=== PATIENT | female | born 1975 | race Caucasian/White ===

== ENCOUNTER → 2020-03-11 | Outpatient (CLI) | payer OTHER | LOC: COL.RAD 03-09 14:15 | DX: K82.8 Other specified diseases of gallbladder (principal); R11.0 Nausea; F10.10 Alcohol abuse, uncomplicated; R12 Heartburn; R10.9 Unspecified abdominal pain ==

== ENCOUNTER 2020-03-17 02:15 | Emergency (ER) | payer OTHER ==
[~2020-03-17] VITALS: Ht 175.3 cm; Wt 81.8 kg
[2020-03-17 02:46] LABS: BASO # 0.1 (0.0-0.2); BASO % 0.5 % (0.0-2.0); EOS # 0.3 (0.0-0.7); EOS % 3.3 % (0-4.0); GRAN # 5.4 (1.4-6.5); GRAN % 54.5 % (42.2-75.2); HEMATOCRIT 41.5 % (37.0-47.0); HEMOGLOBIN 14.2 g/dl (12.5-16.0); LYMPH # 3.5 (1.2-3.4); LYMPH % 35.1 % (20.0-51.0); MEAN CELL VOLUME 88 fl (80.0-100.0); MEAN CORPUSCULAR HEMOGLOBIN 30 pg (27.0-31.0); MEAN CORPUSCULAR HGB CONC 34 g/dl (33.0-37.0); MEAN PLATELET VOLUME 10.7 fl (7.4-10.4); MONO # 0.6 (0.1-0.6); MONO % 6.3 % (1.7-9.3); PLATELET COUNT 258 K/mm3 (130-400); RED BLOOD COUNT 4.72 M/mm3 (4.10-5.30); REDCELL DISTRIBUTION WIDTH-CV 12.7 % (11.5-14.5)
[2020-03-17 02:58] LABS: ALBUMIN 4.5 gm/dL (3.5-5.0); BILIRUBIN,TOTAL 0.4 mg/dL (0.0-1.0); C-REACTIVE PROTEIN 1.2 mg/dL (0.0-0.9); CREATININE, serum 1.05 (0.52-1.25); POTASSIUM 3.8 mmol/L (3.4-5.0); TOTAL PROTEIN 7.5 gm/dL (6.4-8.2)
[2020-03-17 03:38] LABS: COLLECTION METHOD CLEAN CATCH
[2020-03-17 04:03] LABS: AMORPHOUS CRYSTAL Present /uL; MUCOUS Present /lpf; PH 9 (5-8); URINE APPEARANCE Cloudy; URINE BACTERIA Rare /hpf; URINE BILIRUBIN Negative (NEGATIVE); URINE BLOOD Negative (NEGATIVE); URINE COLOR Yellow; URINE GLUCOSE Negative (NEGATIVE); URINE KETONE Negative (NEGATIVE); URINE LEUKOCYTE ESTERASE Negative (NEGATIVE); URINE NITRATE Negative (NEGATIVE); URINE PROTEIN(semi-quant) Negative (NEGATIVE); URINE RBC 0-2 /hpf; URINE UROBILINOGEN Negative (NEGATIVE)
[2020-03-17 05:24] VITALS: BP 116/59; PULSE 68
[2020-03-17] MEDS ORDERED: REQUIP 0.5MG0.5 MG PO (05:43)
[2020-03-17] MEDS ORDERED: TOPAMAX 100MG100 M1 PO (05:44)
[2020-03-17] MEDS ORDERED: NEXIUM 20MG20 MG PO (05:44)
[2020-03-17] MEDS ORDERED: MOBIC15 MG PO (05:45)
[2020-03-17] MEDS ORDERED: PROZAC40 MG PO (05:45)
== END 2020-03-17 05:35 | disposition home or self-care (01) ==
LOC: COL.ER 02:15
PROVIDERS: Nurse Practitioner Primary Care
DX: K52.9 Noninfective gastroenteritis and colitis, unspecified (principal); F17.210 Nicotine dependence, cigarettes, uncomplicated
CPT/HCPCS: J1170; J2175; J2405; J2765; J7030

== ENCOUNTER 2020-03-24 00:45 | Emergency (ER) | payer OTHER ==
[~2020-03-24] VITALS: Ht 175.3 cm; Wt 80.9 kg
[~2020-03-24 00:45] MED LIST: MOBIC15 MG PO; NEXIUM 20MG20 MG PO; PROZAC40 MG PO; REQUIP 0.5MG0.5 MG PO; TOPAMAX 100MG100 M1 PO
[2020-03-24 01:41] LABS: BASO # 0.1 (0.0-0.2); BASO % 0.5 % (0.0-2.0); EOS # 0.3 (0.0-0.7); EOS % 2.5 % (0-4.0); GRAN # 8.6 (1.4-6.5); GRAN % 63.9 % (42.2-75.2); HEMATOCRIT 41.2 % (37.0-47.0); HEMOGLOBIN 13.8 g/dl (12.5-16.0); LYMPH # 3.6 (1.2-3.4); MEAN CELL VOLUME 89 fl (80.0-100.0); MEAN CORPUSCULAR HEMOGLOBIN 30 pg (27.0-31.0); MEAN CORPUSCULAR HGB CONC 34 g/dl (33.0-37.0); MEAN PLATELET VOLUME 10.9 fl (7.4-10.4); MONO # 0.8 (0.1-0.6); MONO % 5.7 % (1.7-9.3); PLATELET COUNT 270 K/mm3 (130-400); RED BLOOD COUNT 4.61 M/mm3 (4.10-5.30)
[2020-03-24 01:44] LABS: ALBUMIN 4.7 gm/dL (3.5-5.0); BILIRUBIN,TOTAL 0.5 mg/dL (0.0-1.0); CALCIUM 9.7 mg/dL (8.4-10.2); CREATININE, serum 1.08 (0.52-1.25); POTASSIUM 3.7 mmol/L (3.4-5.0); TOTAL PROTEIN 7.9 gm/dL (6.4-8.2)
[2020-03-24 03:06] LABS: COLLECTION METHOD CLEAN CATCH
[2020-03-24 03:17] LABS: AMORPHOUS CRYSTAL Present /uL; MUCOUS Present /lpf; PH 8 (5-8); URINE APPEARANCE Cloudy; URINE BACTERIA None Seen /hpf; URINE BILIRUBIN Negative (NEGATIVE); URINE BLOOD Negative (NEGATIVE); URINE COLOR Red; URINE GLUCOSE Negative (NEGATIVE); URINE KETONE Trace (NEGATIVE); URINE LEUKOCYTE ESTERASE Negative (NEGATIVE); URINE NITRATE Negative (NEGATIVE); URINE PROTEIN(semi-quant) Negative (NEGATIVE); URINE RBC None Seen /hpf; URINE UROBILINOGEN Negative (NEGATIVE)
[2020-03-24 03:39] VITALS: TEMP 98.6
[2020-03-24] MEDS ORDERED: ZOFRAN ODT4 MG PO (03:56)
[2020-03-24] MEDS ORDERED: PHENERGAN 25 TA25 MG PO (03:56)
[2020-03-24] MEDS ORDERED: CARAFATE 1GM1 G PO (04:01)
[2020-03-24 04:55] VITALS: BP 140/70; PULSE 66
== END 2020-03-24 04:55 | disposition home or self-care (01) ==
LOC: COL.ER 00:45
PROVIDERS: Emergency Medicine
DX: R11.2 Nausea with vomiting, unspecified (principal); R10.13 Epigastric pain; F41.9 Anxiety disorder, unspecified; K21.9 Gastro-esophageal reflux disease without esophagitis; F17.210 Nicotine dependence, cigarettes, uncomplicated
CPT/HCPCS: J0780; J1885; J2270; J2405; J7030; Q9967

== ENCOUNTER 2020-04-13 12:18 | Outpatient (CLI) | payer OTHER ==
[~2020-04-13 12:18] MED LIST changes: +CARAFATE 1GM1 G PO; +PHENERGAN 25 TA25 MG PO; +ZOFRAN ODT4 MG PO
== END 2020-04-14 ==
LOC: COL.RAD
DX: K29.70 Gastritis, unspecified, without bleeding (principal); K21.0 Gastro-esophageal reflux disease with esophagitis; K25.9 Gastric ulcer, unspecified as acute or chronic, without hemorrhage or perforation
CPT/HCPCS: A9537; J2805

== ENCOUNTER 2021-02-12 08:50 | Emergency (ER) | payer OTHER ==
[~2021-02-12] VITALS: Ht 175.3 cm; Wt 78.2 kg
[2021-02-12 09:03] VITALS: TEMP 96.7
[2021-02-12 09:23] LABS: BASO % 0.3 % (0.0-2.0); EOS % 0.1 % (0-4.0); GRAN # 10.5 (1.4-6.5); GRAN % 83.6 % (42.2-75.2); HEMATOCRIT 42.5 % (37.0-47.0); HEMOGLOBIN 14.6 g/dl (12.5-16.0); LYMPH # 1.6 (1.2-3.4); LYMPH % 12.5 % (20.0-51.0); MEAN CELL VOLUME 89 fl (80.0-100.0); MEAN CORPUSCULAR HEMOGLOBIN 30 pg (27.0-31.0); MEAN CORPUSCULAR HGB CONC 34 g/dl (33.0-37.0); MEAN PLATELET VOLUME 10.4 fl (7.4-10.4); MONO # 0.4 (0.1-0.6); MONO % 2.9 % (1.7-9.3); PLATELET COUNT 348 K/mm3 (130-400); REDCELL DISTRIBUTION WIDTH-CV 12.8 % (11.5-14.5)
[2021-02-12 09:54] LABS: ALBUMIN 4.5 gm/dL (3.5-5.0); BILIRUBIN,TOTAL 0.7 mg/dL (0.0-1.0); CALCIUM 9.6 mg/dL (8.4-10.2); CREATININE, serum 0.9 (0.52-1.25); POTASSIUM 3.8 mmol/L (3.4-5.0); TOTAL PROTEIN 7.6 gm/dL (6.4-8.2)
[2021-02-12 09:57] LABS: COLLECTION METHOD CLEAN CATCH
[2021-02-12 10:16] LABS: MUCOUS Present /lpf; PH 9 (5-8); URINE APPEARANCE Hazy; URINE BILIRUBIN Negative (NEGATIVE); URINE BLOOD Negative (NEGATIVE); URINE COLOR Yellow; URINE GLUCOSE Negative (NEGATIVE); URINE KETONE 1+ (NEGATIVE); URINE LEUKOCYTE ESTERASE Negative (NEGATIVE); URINE NITRATE Negative (NEGATIVE); URINE PROTEIN(semi-quant) 2+ (NEGATIVE); URINE RBC 0-2 /hpf; URINE UROBILINOGEN Negative (NEGATIVE)
[2021-02-12 10:22] LABS: URINE BACTERIA None Seen /hpf
[2021-02-12] MEDS ORDERED: ZOFRAN ODT4 MG PO (11:42)
[2021-02-12 12:17] VITALS: BP 116/94; PULSE 62
== END 2021-02-12 12:19 | disposition home or self-care (01) ==
LOC: COL.ER 08:50
PROVIDERS: Emergency Medicine
DX: R10.9 Unspecified abdominal pain (principal); R11.2 Nausea with vomiting, unspecified; D72.829 Elevated white blood cell count, unspecified; K21.9 Gastro-esophageal reflux disease without esophagitis; F41.9 Anxiety disorder, unspecified; G43.909 Migraine, unspecified, not intractable, without status migrainosus; F17.210 Nicotine dependence, cigarettes, uncomplicated; Z32.02 Encounter for pregnancy test, result negative; Z79.899 Other long term (current) drug therapy
CPT/HCPCS: J1630; J2405; J3010; J7120; Q9967

== ENCOUNTER → 2023-09-18 | Outpatient (CLI) | payer OTHER ==
[~2023-09-18] MED LIST changes: +Iohexol 300 - 10 ML VIAL IV ONE; +MOTRIN 600600 MG/TAB PO; +NORCO 325 MG-51 TAB PO; +PRILOTC PO; +PROZAC 20MG20 MG PO; +TOPROL XL 50MG50 MG PO; +TORADOL 10MG TA10 MG PO; +Triamcinolone 40 MG/ML 1 ML VIAL IJ ONE
== END ==
LOC: COL.RAD 09:27
DX: M25.551 Pain in right hip (principal)
CPT/HCPCS: J0665; J3301; Q9967